=== PATIENT | male | born 1960 | race Caucasian/White ===

== ENCOUNTER 2016-10-04 05:18 | Inpatient (IN) | payer OTHER, SELFPAY ==
[2016-09-29 15:45] LABS: BASOPHILS 0.3 %; BASOPHILS ABSOLUTE 0.03 10/3/uL (0.0-0.16); EOSINOPHILS 1.7 %; EOSINOPHILS ABSOLUTE 0.16 10/3/uL (0.0-0.53); HEMATOCRIT 44.2 % (40.0-51.0); HEMOGLOBIN 15.7 g/dL (13.6-17.8); IMMATURE GRANULOCYTES 0.2 %; IMMATURE GRANULOCYTES ABSOLUTE 0.02 10/3/uL (0.0-0.11); LYMPHOCYTES 23.3 %; LYMPHOCYTES ABSOLUTE 2.18 10/3/uL (0.67-4.30); MEAN CORPUS HGB CONC 35.5 g/dL (32.0-36.0); MEAN CORPUSCULAR HEMOGLOB 32.7 pg (26.0-34.0); MEAN PLATELET VOLUME 11.3 fL (9.2-13.0); MONOCYTES 7.8 %; MONOCYTES ABSOLUTE 0.73 10/3/uL (0.21-1.20); NEUTROPHILS 66.7 %; NEUTROPHILS ABSOLUTE 6.25 10/3/uL (2.02-8.40); PLATELET COUNT 132 10/3/uL (150-400); RBC DISTRIBUTION WIDTH 12.6 % (12.0-16.0); WHITE BLOOD CELLS 9.4 10/3/uL (4.5-10.5)
[2016-09-29 15:46] LABS: MANUAL DIFF NO %; MEAN CORPUSCULAR VOLUME 92.1 fL (80-100)
[2016-09-29 15:48] LABS: INTERNATIONAL NORMAL RATI 1.1 UNITS (-); PROTIME (NOT ORD) 14.4 SEC (12.0-14.5)
[2016-09-29 15:59] LABS: % IRON SAT 40 % (20-50); A/G RATIO 1.2 (0.7-1.9); ALBUMIN 3.8 G/DL (3.5-5.0); ALKALINE PHOSPHATASE 77 U/L (45-117); BUN (BLOOD UREA NITROGEN) 16 MG/DL (6-23); CALCIUM, SERUM 8.8 MG/DL (8.5-10.4); CHLORIDE, SERUM 105 MMOL/L (96-112); CO2 (CARBON DIOXIDE) 28 MMOL/L (24-34); CREATININE 0.97 MG/DL (0.70-1.30); GFR AFRICAN AMERICAN 100 ML/MIN (>=60); GFR NON AFRICAN AMERICAN 86 ML/MIN (>=60); GLOBULIN 3.3 G/DL (2.5-4.1); GLUCOSE, SERUM 95 MG/DL (60-99); IRON BINDING CAPACITY 285 MCG/DL (250-450); IRON, SERUM 114 MCG/DL (35-150); POTASSIUM, SERUM 4.2 MMOL/L (3.5-5.3); SGOT(AST) 14 U/L (5-40); SGPT(ALT) 37 U/L (5-65); SODIUM, SERUM 143 MMOL/L (135-148); TOTAL BILIRUBIN 0.3 MG/DL (0-1.2); TOTAL PROTEIN 7.1 G/DL (6.0-8.5)
[2016-09-29 16:19] LABS: ASCORBIC ACID (UR NOT ORDER) NEG (NEG); BILIRUBIN, URINE NEGATIVE (NEG); KETONE, URINE NEGATIVE (NEG); LEUKOCYTE ESTERASE(NOT OR NEG (NEG); WBC (NOT ORDERED) (RFLEX) < 1 (0-5)
--- NOTE | ~2016-10-04 | DS ---
Discharge Summary [facility] [address] [place]. [address] NAME: TOYIN CARD : 58 STATUS : DIS IN PAT#: [id number] AGE: 56 ADM/REG DATE : 10/04/16 MR#: [id number] REPORT SERV DATE: 10/19/16 DICTATED BY: EVERT MATTHEWS DATE: 10/18/16 REPORT STATUS : Draft TRANSCRIBED BY: JANINA DATE: 10/18/16 Data Collection from hospitalization DISCHARGE DIAGNOSES: 1. Three-vessel coronary artery disease. 2. Hypertension. 3. Ventricular tachycardia. 4. Hyperlipidemia. 5. Sleep apnea. 6. Type 2 diabetes mellitus. 7. Tobacco abuse. 8. Morbid obesity. CONSULTATIONS: Zehra Ulloa M.D. PROCEDURES PERFORMED: Median sternotomy; extracorporeal circulation; elective coronary artery bypass grafting x3, left internal mammary artery to the left anterior descending artery, reverse greater saphenous vein graft to the obtuse marginal #1, reverse greater saphenous vein graft to the posterior descending artery; transesophageal echocardiogram; endoscopic vein harvest from the bilateral thighs; rigid external fixation of the sternum using the SternaLock Bear System; Prevena dressing placement on 10/04/2016. MEDICATIONS: Pacerone 400 mg twice a day, Norvasc 5 mg daily, aspirin 81 mg daily, Lioresal 10 mg three times a day, Celebrex 200 mg twice a day, Neurontin 300 mg four times a day, [place] 10/325 one tablet every six hours, Glucophage 500 mg three times a day, Lopressor 25 mg twice a day, Singulair 10 mg every morning, Percocet 5/325 one to two tablets every four hours as needed, Crestor 20 mg at bedtime, and Januvia 100 mg every evening. CONDITION AT DISCHARGE: Stable. DISPOSITION: The patient was discharged home on an 1800-calorie cardiac/diabetic diet with activities as instructed. He would follow up with me four weeks following discharge. He would follow up with Dr. Vamsi Savage three to four weeks following discharge. HOSPITAL COURSE: This is a 56-year-old man who has three-vessel coronary artery disease. Treatment options had been discussed and it was elected to proceed with surgical intervention. He was admitted to the hospital at this time for further evaluation and treatment. Upon admission, he was taken to the operating room where he underwent the above-mentioned procedure. He tolerated this well, and there were no complications. On postop day #1, the patient was seen in the Cardiovascular ICU. He was still currently intubated. The following day, he was seen by Dr. Zehra Ulloa. The patient did have some postop pain with deep breathing. Shortness of breath had been relieved during the night with CPAP. Amlodipine was added back to his regimen if his systolic blood pressure greater than 130. He was changed to his home Crestor. He was using his home CPAP at bedtime. He was being transitioned to sliding scale insulin. Hemoglobin A1c was 6.3%. On 10/06/2016, he still complained of some left-sided abdominal cramping, this is usually relieved with Celebrex at Discharge Summary [address] [address] NAME: TOYIN CARD : 59 STATUS : DIS IN PAT#: [id number] AGE: 56 ADM/REG DATE : 10/04/16 MR#: [id number] REPORT SERV DATE: 10/19/16 DICTATED BY: EVERT MATTHEWS DATE: 10/18/16 REPORT STATUS : Draft TRANSCRIBED BY: MODL DATE: 10/18/16 home. CECELIA hose were in place. Amlodipine was added. Aspirin, metoprolol, and statin were continued. A trial of Toradol was provided. He is compliant with his CPAP. He continued to progress. Discharge planning was performed. On 10/08/2016, his chest x-ray had shown a small left effusion. His sternum was clean, dry, and intact. Discharge instructions were given. Due to his improved and stable condition, he was discharged home with the above- stated instructions. Information collected by: Anna Gipson I submit the above information as my discharge summary. TG/MODL Evert Matthews MD / [id number] CC: MD SUSSY Olson ALEX OLEG Lisa Gail Carkner, M.D.
--- NOTE | ~2016-10-04 | OP ---
Record Of Operation [address] [place]. [address] NAME: TOYIN CARD : 59 STATUS : ADM IN PAT#: [id number] AGE: 56 ADM/REG DATE : 10/04/16 MR#: [id number] REPORT SERV DATE: 10/04/16 DICTATED BY: EVERT MATTHEWS DATE: 10/04/16 REPORT STATUS : Draft TRANSCRIBED BY: MODL DATE: 10/04/16 DATE OF PROCEDURE: 10/04/2016 AUTO PARTS HANDLER: Esa Feldman. ANESTHESIOLOGIST: Samy Gill M.D. PREOPERATIVE DIAGNOSES: 1. Three-vessel coronary artery disease. 2. Hypertension. 3. Ventricular tachycardia. 4. Hyperlipidemia. 5. Sleep apnea. 6. Diabetes mellitus type 2. 7. Tobacco abuse. 8. Morbid obesity. POSTOPERATIVE DIAGNOSES: 1. Three-vessel coronary artery disease. 2. Hypertension. 3. Ventricular tachycardia. 4. Hyperlipidemia. 5. Sleep apnea. 6. Diabetes mellitus type 2. 7. Tobacco abuse. 8. Morbid obesity. OPERATION/PROCEDURE PERFORMED: 1. Median sternotomy. 2. Extracorporeal circulation. 3. Elective coronary artery bypass grafting x3, left internal mammary artery, left anterior descending, reverse greater saphenous vein graft to obtuse marginal #1, reverse greater saphenous vein graft to posterior descending artery. 4. JHOAN. 5. Endoscopic vein harvest of bilateral thighs. 6. Rigid external fixation of the sternum using the SternaLock Bear system. 7. Prevena dressing placement. COMPLICATIONS: None. TUBES AND DRAINS: 24-Libyan Óscar to the left pleural space, 32-Libyan straight anterior mediastinal chest tube, atrial and ventricular wires were placed. POSTOPERATIVE CONDITION: Stable to CVICU. INTRAOPERATIVE FINDINGS: Bilateral calf veins were very small, too small to be used for Record Of Operation [address] [place]. [address] NAME: TOYIN CARD : 59 STATUS : ADM IN PAT#: [id number] AGE: 56 ADM/REG DATE : 10/04/16 MR#: [id number] REPORT SERV DATE: 10/04/16 DICTATED BY: EVERT MATTHEWS DATE: 10/04/16 REPORT STATUS : Draft TRANSCRIBED BY: MODL DATE: 10/04/16 bypass. Therefore, bilateral thigh veins were harvested through endoscopic veins because excellent conduit and targets, normal ventricular function. On transesophageal echo, there was normal function. EF approximately 60%. No AI, no , no MR, no TR. Post bypass, there was preserved wall motion without TR, MR. DETAILS OF CARDIOPULMONARY BYPASS GRAFTIN. Graft #1, left internal mammary artery, left anterior descending, this is a 2 mm target. 2. Reverse greater saphenous vein graft to obtuse marginal #1, this was a 2 mm target. 3. Reverse greater saphenous vein graft to posterior descending artery, this was a 1.75 mm target. DETAILS OF STERNAL PLATING AND STERNAL CLOSURE: Sternum was closed using eight stainless steel sternal wires, some of these were double wires. The pectoral flaps were raised and the SternaLock Bear system was used with 100 degree plate on the manubrium and two X plates on the body of the sternum. Total of 20 screws were used, these were 16 mm screws. INDICATIONS FOR PROCEDURE: Mr. Card is a 56-year-old gentleman with symptoms of angina. He is a morbidly obese diabetic smoker with hyperlipidemia, sleep apnea, diabetes, who was found to have three-vessel coronary artery disease on his heart cath. He was referred for coronary artery bypass grafting. Risks, benefits, and alternatives were discussed with the patient including but not limited to, bleeding, infection, stroke, , heart attack, need for future operations. All questions were answered. The STS risk scores were calculated and discussed with the patient as well. Risk of less than 1% mortality and less than 15% complications were discussed with the patient. DETAILS OF PROCEDURE: The patient was brought to the operating room, placed supine on the operating room table. After satisfactory induction of general endotracheal anesthesia, he was prepped and draped in usual sterile fashion. Working simultaneously, median sternotomy was performed while endoscopic vein harvest was performed from bilateral thighs. The skin and subcutaneous tissues were divided. Clavipectoral fascia was divided. The sternum was divided in the midline using a sternal saw. Hemostasis was obtained. A Rultract retractor was placed and the internal mammary artery was harvested in pedicle fashion. It was takeoff under the subclavian vein at the bifurcation of the diaphragm. It was then infiltrated with papaverine. Systemic heparinization was achieved. After 3 minutes, the pedicle was clipped and divided the bifurcation. Hemostasis was obtained along with chest wall. 24-Libyan Óscar was placed on the left pleural space and exteriorized. Rultract retractor was removed. Sternal retractor was placed. Pericardium was opened in the midline after dividing thymic tissue up to the innominate vein. Pericardial well was created. Ascending aortic cannulation was achieved high on the ascending aorta at the base of the innominate artery. Dual stage venous cannulation was achieved through pursestring on the right atrial appendage. Antegrade root vent cardioplegia tack was placed and the vein was brought up and reversed and prepared for bypass. The internal mammary artery was brought down through a wide V in the pericardium, prepared for bypass. Cardiopulmonary bypass was initiated after documentation of adequate ACT. Targets were inspected. Targets were mentioned as above. Of note, the first diagonal was a small vessel, did not feel that this was appropriate for bypass. Cross-clamp was brought up and heart was arrested with cold antegrade cardioplegia, Record Of Operation [place] [id number] [facility] [place]. [address] NAME: TOYIN CARD : 58 STATUS : ADM IN PAT#: [id number] AGE: 56 ADM/REG DATE : 10/04/16 MR#: [id number] REPORT SERV DATE: 10/04/16 DICTATED BY: EVERT MATTHEWS DATE: 10/04/16 REPORT STATUS : Draft TRANSCRIBED BY: JANINA DATE: 10/04/16 switching cold antegrade cardioplegia throughout the remainder of the cross-clamp intermittently every 15 to 20 minutes throughout the remainder of the cross-clamp. Grafts were then performed as mentioned in the findings. The two vein anastomoses were performed. The posterior descending artery and the obtuse marginal with reverse greater saphenous vein. These were done with 8-0 Surgipro. The grafts were cut to length and spatulated. Proximal aortotomies were performed, enlarged with the aortic punch, and then the running continuous anastomosis was performed using 6-0 Prolene. Graft markers were placed. Internal mammary artery was then brought down through a wide V in the pericardium. The left anterior descending was opened in a soft spot, its anterior surface enlarged with coronary scissors. The XAVIER was spatulated and a running continuous anastomosis was performed using 8-0 Surgipro. After completion of the anastomosis, the bulldog was removed. There was excellent flow in the graft and proximal and distal to the anastomosis. Pedicle was attached to the heart in two places. Vein grafts were de-aired. The cross-clamp was removed. Atrial and ventricular pacing wires were placed. The patient was able to be weaned from cardiopulmonary bypass without incident with no inotropic support. Protamine was administered. The patient was decannulated. All cannulation sites were oversewn with 4 0 Prolene. Pericardium was loosely reapproximated using 2-0 silk over the right ventricle and the ascending aorta. The hemostasis was obtained. A 32-Libyan chest tube was placed in the anterior mediastinum. The sternum was then reapproximated using stainless steel sternal wires, some of these were double wires. Mild small areas of the pectoral muscle raised for plates to be placed in between the sternal wires. The sternum had measured to a depth of 16 mm for the SternaLock Bear system. Total of 20 screws were used, two X plates were placed in the body of the sternum, and one 100-degree plate was placed on the body of the manubrium. Clavipectoral fascia was then reapproximated using running #1 StrataFix. Subcutaneous tissues were closed using running #1 StrataFix. The skin was close using a 2-0 Quill. Prevena dressing was placed and the patient was transferred to CVICU in critical, stable condition. [facility]/MODL Evert Matthews MD / [id number] CC: MD Parish Olson Alex Oleg Andrew H Fowler, M.D.
[~2016-10-04 05:18] MED LIST: ASAB PO; BENICAR40 PO; CELEBREX2 PO; CRESTOR10 PO; GLUCPH PO; IMDUR30 PO; JANUVIA100 MG PO; LAM250 PO; LIOR10 PO; LOP25 PO; LOTREL1 CA3 PO; NEUR300 PO; NORCO1 TAB PO; SINGULAIR1 PO
[2016-10-04 12:47] LABS: BE (BASE EXCESS) -3.6 MEQ/L (0 +/- 2.5); CARBOXYHEMOGLOBIN 0.2 % (0-3); HCO3 (ACTUAL BICARBONATE) 21.1 MEQ/L (23-27); HEMOBLOGIN CONTENT 14.2 G/DL (14-18); INSTRUMENT SERIAL # 11843; METHEMOGLOBIN 0.4 % (0-3); MODE SIMV; O2 CONTENT 19.7 VOL% (18-24); OPERATOR ID 18642; PCO2 (CO2 TENSION) 37 MMHG (35-45); PO2 (O2 TENSION) 147 MMHG (79-93); PRESSURE SUPPORT 0 cm.H2O; SAMPLE Arterial; TIDAL VOLUME 700 ML; pH 7.37 (7.37-7.43)
[2016-10-04 14:03] LABS: HEMOGLOBIN 13.3 g/dL (13.6-17.8)
[2016-10-04 14:04] LABS: HEMATOCRIT 37.6 % (40.0-51.0); PLATELET COUNT 90 10/3/uL (150-400)
[2016-10-04 14:11] LABS: FIBRINOGEN 227 MG/DL (230-462); INTERNATIONAL NORMAL RATI 1.4 UNITS (-); PARTIAL THROMBO TIME 29.8 SEC (22.5-37.2)
[2016-10-04 14:12] LABS: PROTIME (NOT ORD) 17.1 SEC (12.0-14.5)
[2016-10-04 14:15] LABS: BUN (BLOOD UREA NITROGEN) 19 MG/DL (6-23); CHLORIDE, SERUM 110 MMOL/L (96-112); CO2 (CARBON DIOXIDE) 26 MMOL/L (24-34); GFR AFRICAN AMERICAN 96 ML/MIN (>=60); GFR NON AFRICAN AMERICAN 83 ML/MIN (>=60); GLUCOSE, SERUM 99 MG/DL (60-99); POTASSIUM, SERUM 3.5 MMOL/L (3.5-5.3); SODIUM, SERUM 145 MMOL/L (135-148)
[2016-10-04 14:24] LABS: CALCIUM, SERUM 7.4 MG/DL (8.5-10.4)
[2016-10-04 18:23] LABS: HCO3 (ACTUAL BICARBONATE) 24.8 MEQ/L (23-27); INSTRUMENT SERIAL # 11843; PCO2 (CO2 TENSION) 50 MMHG (35-45); PO2 (O2 TENSION) 83 MMHG (79-93); pH 7.31 (7.37-7.43)
[2016-10-04 18:24] LABS: CARBOXYHEMOGLOBIN 0.3 % (0-3); DEVICE NC; HEMOBLOGIN CONTENT 15.8 G/DL (14-18); METHEMOGLOBIN 0.4 % (0-3); O2 CONTENT 20.9 VOL% (18-24); OPERATOR ID 18642; SAMPLE Arterial
[2016-10-04 20:48] LABS: HEMATOCRIT 40.4 % (40.0-51.0); HEMOGLOBIN 14.4 g/dL (13.6-17.8)
[2016-10-04 21:01] LABS: BUN (BLOOD UREA NITROGEN) 19 MG/DL (6-23); CALCIUM, SERUM 7.6 MG/DL (8.5-10.4); CHLORIDE, SERUM 113 MMOL/L (96-112); CO2 (CARBON DIOXIDE) 24 MMOL/L (24-34); CREATININE 0.86 MG/DL (0.70-1.30); GFR AFRICAN AMERICAN 112 ML/MIN (>=60); GFR NON AFRICAN AMERICAN 96 ML/MIN (>=60); GLUCOSE, SERUM 129 MG/DL (60-99); POTASSIUM, SERUM 4.7 MMOL/L (3.5-5.3); SODIUM, SERUM 145 MMOL/L (135-148)
[2016-10-05 03:35] LABS: BASOPHILS 0.1 %; BASOPHILS ABSOLUTE 0.01 10/3/uL (0.0-0.16); EOSINOPHILS 0 %; HEMATOCRIT 38.4 % (40.0-51.0); HEMOGLOBIN 13.7 g/dL (13.6-17.8); IMMATURE GRANULOCYTES 0.2 %; IMMATURE GRANULOCYTES ABSOLUTE 0.03 10/3/uL (0.0-0.11); LYMPHOCYTES 5.8 %; LYMPHOCYTES ABSOLUTE 0.84 10/3/uL (0.67-4.30); MEAN CORPUS HGB CONC 35.7 g/dL (32.0-36.0); MEAN CORPUSCULAR HEMOGLOB 33.1 pg (26.0-34.0); MEAN CORPUSCULAR VOLUME 92.8 fL (80-100); MEAN PLATELET VOLUME 11.6 fL (9.2-13.0); MONOCYTES 7.3 %; MONOCYTES ABSOLUTE 1.05 10/3/uL (0.21-1.20); NEUTROPHILS 86.6 %; NEUTROPHILS ABSOLUTE 12.54 10/3/uL (2.02-8.40); PLATELET COUNT 98 10/3/uL (150-400); RBC DISTRIBUTION WIDTH 12.7 % (12.0-16.0); RED CELL COUNT 4.14 10/6/uL (4.7-6.1)
[2016-10-05 03:36] LABS: MANUAL DIFF NO %; WHITE BLOOD CELLS 14.5 10/3/uL (4.5-10.5)
[2016-10-05 03:48] LABS: BUN (BLOOD UREA NITROGEN) 19 MG/DL (6-23); CALCIUM, SERUM 8.2 MG/DL (8.5-10.4); CHLORIDE, SERUM 113 MMOL/L (96-112); CO2 (CARBON DIOXIDE) 24 MMOL/L (24-34); CREATININE 0.88 MG/DL (0.70-1.30); GFR AFRICAN AMERICAN 111 ML/MIN (>=60); GFR NON AFRICAN AMERICAN 95 ML/MIN (>=60); GLUCOSE, SERUM 109 MG/DL (60-99); POTASSIUM, SERUM 4.5 MMOL/L (3.5-5.3); SODIUM, SERUM 145 MMOL/L (135-148)
[2016-10-06 05:39] LABS: BASOPHILS 0.1 %; BASOPHILS ABSOLUTE 0.01 10/3/uL (0.0-0.16); EOSINOPHILS 0 %; HEMATOCRIT 36.9 % (40.0-51.0); HEMOGLOBIN 12.8 g/dL (13.6-17.8); IMMATURE GRANULOCYTES 0.4 %; IMMATURE GRANULOCYTES ABSOLUTE 0.08 10/3/uL (0.0-0.11); LYMPHOCYTES 9.1 %; LYMPHOCYTES ABSOLUTE 1.72 10/3/uL (0.67-4.30); MEAN CORPUS HGB CONC 34.7 g/dL (32.0-36.0); MEAN CORPUSCULAR HEMOGLOB 32.4 pg (26.0-34.0); MEAN CORPUSCULAR VOLUME 93.4 fL (80-100); MEAN PLATELET VOLUME 11.5 fL (9.2-13.0); MONOCYTES 9.2 %; MONOCYTES ABSOLUTE 1.73 10/3/uL (0.21-1.20); NEUTROPHILS 81.2 %; NEUTROPHILS ABSOLUTE 15.29 10/3/uL (2.02-8.40); PLATELET COUNT 102 10/3/uL (150-400); RED CELL COUNT 3.95 10/6/uL (4.7-6.1); WHITE BLOOD CELLS 18.8 10/3/uL (4.5-10.5)
[2016-10-06 05:40] LABS: MANUAL DIFF NO %
[2016-10-06 05:48] LABS: BUN (BLOOD UREA NITROGEN) 19 MG/DL (6-23); CALCIUM, SERUM 7.9 MG/DL (8.5-10.4); CO2 (CARBON DIOXIDE) 24 MMOL/L (24-34); CREATININE 1.05 MG/DL (0.70-1.30); GFR AFRICAN AMERICAN 91 ML/MIN (>=60); GFR NON AFRICAN AMERICAN 78 ML/MIN (>=60); POTASSIUM, SERUM 4.3 MMOL/L (3.5-5.3)
[2016-10-06 05:52] LABS: CHLORIDE, SERUM 102 MMOL/L (96-112); GLUCOSE, SERUM 219 MG/DL (60-99); SODIUM, SERUM 136 MMOL/L (135-148)
[2016-10-07 06:28] LABS: BASOPHILS 0.1 %; BASOPHILS ABSOLUTE 0.01 10/3/uL (0.0-0.16); EOSINOPHILS 0.2 %; EOSINOPHILS ABSOLUTE 0.02 10/3/uL (0.0-0.53); HEMATOCRIT 35.8 % (40.0-51.0); HEMOGLOBIN 12.4 g/dL (13.6-17.8); IMMATURE GRANULOCYTES 0.2 %; IMMATURE GRANULOCYTES ABSOLUTE 0.03 10/3/uL (0.0-0.11); LYMPHOCYTES 11.5 %; MEAN CORPUS HGB CONC 34.6 g/dL (32.0-36.0); MEAN CORPUSCULAR HEMOGLOB 32.5 pg (26.0-34.0); MEAN CORPUSCULAR VOLUME 93.7 fL (80-100); MONOCYTES 11.2 %; MONOCYTES ABSOLUTE 1.46 10/3/uL (0.21-1.20); NEUTROPHILS 76.8 %; NEUTROPHILS ABSOLUTE 10.04 10/3/uL (2.02-8.40); PLATELET COUNT 107 10/3/uL (150-400); RED CELL COUNT 3.82 10/6/uL (4.7-6.1); WHITE BLOOD CELLS 13.1 10/3/uL (4.5-10.5)
[2016-10-07 06:30] LABS: MANUAL DIFF NO %
[2016-10-07 06:40] LABS: BUN (BLOOD UREA NITROGEN) 16 MG/DL (6-23); CALCIUM, SERUM 7.9 MG/DL (8.5-10.4); CHLORIDE, SERUM 98 MMOL/L (96-112); CREATININE 0.87 MG/DL (0.70-1.30); GFR AFRICAN AMERICAN 111 ML/MIN (>=60); GFR NON AFRICAN AMERICAN 96 ML/MIN (>=60); POTASSIUM, SERUM 3.5 MMOL/L (3.5-5.3); SODIUM, SERUM 137 MMOL/L (135-148)
[2016-10-07 06:42] LABS: CO2 (CARBON DIOXIDE) 33 MMOL/L (24-34); GLUCOSE, SERUM 168 MG/DL (60-99)
[2016-10-08 06:01] LABS: BASOPHILS 0.2 %; BASOPHILS ABSOLUTE 0.02 10/3/uL (0.0-0.16); EOSINOPHILS 0.4 %; EOSINOPHILS ABSOLUTE 0.05 10/3/uL (0.0-0.53); HEMOGLOBIN 12.9 g/dL (13.6-17.8); IMMATURE GRANULOCYTES 0.3 %; IMMATURE GRANULOCYTES ABSOLUTE 0.04 10/3/uL (0.0-0.11); LYMPHOCYTES 17.9 %; LYMPHOCYTES ABSOLUTE 2.07 10/3/uL (0.67-4.30); MEAN CORPUS HGB CONC 34.9 g/dL (32.0-36.0); MEAN CORPUSCULAR HEMOGLOB 32.4 pg (26.0-34.0); MEAN PLATELET VOLUME 11.5 fL (9.2-13.0); MONOCYTES 10.6 %; MONOCYTES ABSOLUTE 1.22 10/3/uL (0.21-1.20); NEUTROPHILS 70.6 %; NEUTROPHILS ABSOLUTE 8.15 10/3/uL (2.02-8.40); RBC DISTRIBUTION WIDTH 13.1 % (12.0-16.0); RED CELL COUNT 3.98 10/6/uL (4.7-6.1); WHITE BLOOD CELLS 11.6 10/3/uL (4.5-10.5)
[2016-10-08 06:05] LABS: MANUAL DIFF NO %; PLATELET COUNT 143 10/3/uL (150-400)
[2016-10-08 06:09] LABS: BUN (BLOOD UREA NITROGEN) 16 MG/DL (6-23); CALCIUM, SERUM 8.4 MG/DL (8.5-10.4); CHLORIDE, SERUM 98 MMOL/L (96-112); CO2 (CARBON DIOXIDE) 31 MMOL/L (24-34); CREATININE 0.84 MG/DL (0.70-1.30); GFR AFRICAN AMERICAN 113 ML/MIN (>=60); GFR NON AFRICAN AMERICAN 97 ML/MIN (>=60); GLUCOSE, SERUM 141 MG/DL (60-99); POTASSIUM, SERUM 3.5 MMOL/L (3.5-5.3); SODIUM, SERUM 137 MMOL/L (135-148)
[2016-10-08] MEDS ORDERED: NORV5 PO (14:43)
[2016-10-08] MEDS ORDERED: LOP25 PO (14:44)
[2016-10-08] MEDS ORDERED: PACERONE400 MG PO (14:44)
[2016-10-08] MEDS ORDERED: PCET PO (14:45)
== END 2016-10-08 17:30 | disposition home or self-care (01) | DRG 236 ==
LOC: SDC/OF 05:18 → CVICU 11:50 → 5NO 10-05 14:38
PROVIDERS: Anesthesiology; Thoracic Surgery (Cardiothoracic Vascular Surgery)
PROC: 0PH000Z Insertion of Rigid Plate Internal Fixation Device into Sternum, Open Approach (ICD-10-PCS; 2016-10-04)
PROC: 5A1221Z Performance of Cardiac Output, Continuous (ICD-10-PCS; 2016-10-04)
PROC: B246ZZ4 Ultrasonography of Right and Left Heart, Transesophageal (ICD-10-PCS; 2016-10-04)
PROC: 021109W Bypass Coronary Artery, Two Arteries from Aorta with Autologous Venous Tissue, Open Approach (ICD-10-PCS; principal; 2016-10-04 07:30)
PROC: 02100Z9 Bypass Coronary Artery, One Artery from Left Internal Mammary, Open Approach (ICD-10-PCS; 2016-10-04 07:30)
PROC: 06BQ0ZZ Excision of Left Saphenous Vein, Open Approach (ICD-10-PCS; 2016-10-04 07:30)
PROC: 06BP4ZZ Excision of Right Saphenous Vein, Percutaneous Endoscopic Approach (ICD-10-PCS; 2016-10-04 07:30)
DX: I25.10 Atherosclerotic heart disease of native coronary artery without angina pectoris (principal); I47.2 Ventricular tachycardia; E66.01 Morbid (severe) obesity due to excess calories; Z99.81 Dependence on supplemental oxygen; I10 Essential (primary) hypertension; E78.5 Hyperlipidemia, unspecified; E11.9 Type 2 diabetes mellitus without complications; F17.210 Nicotine dependence, cigarettes, uncomplicated; Z68.39 Body mass index [BMI] 39.0-39.9, adult; G47.33 Obstructive sleep apnea (adult) (pediatric); M54.5 Low back pain; Z79.4 Long term (current) use of insulin
CPT/HCPCS: 36415; 71010; 71020; 80048; 80053; 81001; 82330; 82803; 82805; 82947; 82962; 83036; 83540; 83550; 83735; 84132; 84295; 85014; 85018; 85025; 85049; 85347; 85384; 85610; 85730; 86850; 86900; 86901; 86920; 87641; 93005; 93312; 93320; 93325; 94002; 94640; 94660; 94770; A9270-GY; C1713; C1769; J0330; J0690; J1170; J1644; J1885; J1940; J2150; J2250; J2370; J2440; J2720; J2930; J3010; J3370; J3475; J3480; P9045; P9047